=== PATIENT | female | born 1965 | race Caucasian/White ===

== ENCOUNTER 2020-03-15 11:29 | Outpatient (CLI) | payer OTHER, SELFPAY ==
--- NOTE | 2020-03-15 11:50 | XRR_ITS ---
PROCEDURE INFORMATION: Exam: XR Lumbosacral Spine, 2 or 3 Views Exam date and time: 03/15/2020 12:03 PM Age: 54 years old Clinical indication: Low back pain; Additional info: Back pain several years TECHNIQUE: Imaging protocol: XR of the lumbosacral spine, 2 or 3 views. Other technique: AP, lateral and spot lateral views of the lumbar spine are submitted. COMPARISON: MRI Lumbar Spine w/o [id number] 02/02/2015 11:13 AM FINDINGS: Vertebrae: Moderate degenerative L5-S1 disc narrowing with mild spondylosis. Soft tissues: Unremarkable. Organs: Probable gallstones right upper quadrant. XR/XR lumbar spine 2-3V* [id number] IMPRESSION: 1. Degenerative changes as above. 2. No acute lumbar spinal bony abnormality identified. 3. Probable gallstones right upper quadrant.
== END 2020-03-15 11:30 | disposition home or self-care (01) ==
PROVIDERS: Family Provider Internal Medicine; PCP Internal Medicine; Visit Provider Internal Medicine
DX: M54.5 Low back pain (principal); M47.816 Spondylosis without myelopathy or radiculopathy, lumbar region
CPT/HCPCS: 72100

== ENCOUNTER → 2021-02-17 15:29 | Outpatient (BNVA) | payer SELFPAY | PROVIDERS: PCP Internal Medicine; Visit Provider Nurse Practitioner | DX: R39.9 Unspecified symptoms and signs involving the genitourinary system (principal); R39.15 Urgency of urination | CPT/HCPCS: 81000 ==

== ENCOUNTER 2021-02-21 22:40 | Emergency (ER) | payer SELFPAY ==
[2021-02-21 22:49] VITALS: PULSE 64; RESP 15; TEMP 36.9; O2SAT 97
--- NOTE | 2021-02-21 22:56 | ED_ITS ---
HPI - Female Genitourinary General: Chief complaint: Urogenital-Female Stated complaint: poss uti Time Seen by Provider: 02/21/21 22:53 History of Present Illness: HPI Narrative: 55-year-old female comes in [facility] for complaints of generalized malaise. Patient reports that 2 weeks ago she was diagnosed with urinary tract infection and has been taking antibiotics although she might of missed a dose here and there but completed the dosing but continues to feel poorly. Patient is alert oriented. Patient also mentions that she for the last month has been helping her son who is diagnosed with cancer. Review of Systems General: Reports: 10 or more systems reviewed and unremarkable except in HPI and below Const: Reports: malaise : Reports: urinary frequency PFSH ED PFSH: Social History Smoking and tobacco status: never smoked Physical Exam Const: COMMON NORMALS: no acute distress and patient oriented x3 GENERAL APPEARANCE: cooperative HENMT: COMMON NORMALS: normocephalic, TM's normal bilaterally and Normal external nose present HEAD & SCALP: normal to inspection and normocephalic NOSE: Normal external nose present TYMPANIC MEMBRANE: TM's normal bilaterally MOUTH: Normal oral and palatal mucosa present THROAT: posterior oropharynx normal Eye: GENERAL EYE: appearance normal, both eyes and all related structures Neck/C-Spine: COMMON NORMALS: full ROM Lymph: LYMPHATIC: no lymphadenopathy noted Chest: COMMONS NORMALS: normal inspection of the chest Resp: COMMON NORMALS: normal respiratory effort EFFORT & INSPECTION: Yes able to speak in complete sentences Cardio: COMMON NORMALS: regular rate and regular rhythm RATE: regular rate RHYTHM: regular rhythm GI: COMMON NORMALS: non-tender : COMMON NORMALS: Yes no CVA tenderness BLADDER/KIDNEY EXAM: Yes no CVA tenderness Back/Pelvis: COMMON NORMALS: no CVA tenderness and thoracic and lumbar spine normal to inspection Extremity: COMMON NORMALS: normal to inspection Neuro: COMMON NORMALS: patient oriented x3 and moves all extremities Psych: COMMON NORMALS: mental status grossly normal and cooperative Skin: COMMON NORMALS: no rashes or lesions noted GENERAL SKIN EXAM: no rashes or lesions noted Course Vital Signs: Vital signs: Vital Signs Temperature 98.5 F 02/21/21 22:49 Pulse Rate 82 02/21/21 23:56 Respiratory Rate 18 02/21/21 23:56 Blood Pressure 160/93 02/21/21 23:56 Pulse Oximetry 98 02/21/21 23:56 MDM - Female MDM Narrative: Medical decision making narrative: 55-year-old female comes in today for complaints of fatigue and some urinary frequency. Patient appears mildly unwell but not toxic. Vital signs are normal except for some mild elevation in blood pressure. Abdomen soft nontender. No CVA tenderness is noted. Patient reported that 2 weeks ago she had a urinary tract infection was treated but continues to have similar symptoms. Patient at first thought she may have a recurrent urinary tract infection. Differential diagnosis includes UTI, malingering, depression, hypertension. Urinalysis showed a very low specific gravity. I was concerned for some overhydration on patient's part may be due to her urinary tract infection and trying to clear her urine out. Her sodium was a little bit low at 134 so this may be suggesting that she is drinking more than she needs to may be causing her urinary frequency. I discussed with patient that she probably needs to restrict fluid intake to about 2 L a day. I restarted patient's lisinopril hydrochlorthiazide but she had ran out of. I recommended that patient follow-up with her primary care for further evaluation and consideration of other treatment options. Patient also reported that she been using some kratom and wanted to know if there is some medical assistance to get her off that supplement. I reassured her that I think she could probably just taper herself off the substance and would be okay. But if she would like medical assistance she needed to talk to her primary care for further information regarding that and a referral to such a program. Lab Data: Labs: Lab Results 02/21/21 02/22/21 02/22/21 Range/Units 23:15 00:15 00:15 WBC 7.3 (4.0-10.0) 10^3/ uL RBC 4.79 (4.1-5.3) 10^6/u L Hgb 14.0 (11.5-15.3) g/dL Hct 43.1 (37.0-47.0) % MCV 90.0 (81-99) fL MCH 29.2 (28.0-34.0) pg MCHC 32.5 (30.0-36.0) g/dL RDW 12.5 (12.1-15.1) % Plt Count 276 (130-400) 10^3/c mm MPV 10.3 (7.4-10.4) fL Neut % (Auto) 63.6 % Lymph % (Auto) 27.8 % [place] % (Auto) 7.3 % Eos % (Auto) 0.8 % Baso % (Auto) 0.4 % Neut # (Auto) 4.65 (1.8-7.7) 10^3/u L Lymph # (Auto) 2.0 (0.8-4.8) 10^3/u L [place] # (Auto) 0.5 (0.2-0.9) 10^3/u L Eos # (Auto) 0.1 (0.0-0.8) 10^3/u L Baso # (Auto) 0.0 (0.0-0.1) 10^3/u L Nucleated RBC % (a uto) 0 % Nucleated RBCs # 0.0 /100WBC Sodium 134 L (136-145) mmol/L Potassium 4.1 (3.5-5.1) mmol/L Chloride 97 L (98-107) mmol/L Carbon Dioxide 28 (22-29) mmol/L Anion Gap 13.1 (5-19) BUN 7 (6-20) mg/dL Creatinine 0.6 (0.5-0.9) mg/dL GFR Calculation 104.2 (90-130) mL/min Glucose 103 (65-115) mg/dL Calculated Osmolal ity 276 L (285-295) mOsm/k g Calcium 9.1 (8.5-10.5) mg/dL Total Bilirubin 0.2 (0.15-1.2) mg/dL AST 15 (0-32) U/L ALT 8 (0-33) U/L Alkaline Phosphata se 78 (35-105) IU/L Total Protein 7.9 (6.6-8.7) g/dL Albumin 4.6 (3.5-5.2) g/dL Globulin 3.3 (1.3-4.6) g/dL Urine Color Yellow (Yellow) Urine Appearance Clear (CLEAR) Urine pH 7 (5-7) Ur Specific Gravit y 1.000 L (1.005-1.030) Urine Protein Neg (Negative) Urine Glucose (UA) Norm (Normal) Urine Ketones Negative (Negative) Urine Blood Neg (Negative) Urine Nitrate Negative (Negative) Urine Bilirubin Neg (Negative) Urine Urobilinogen Norm (Negative) mg/dL Ur Leukocyte Anahi ase Negative (Negative) Discharge Plan Discharge Patient Disposition: Home Clinical Impression: Malaise and fatigue, History of UTI Hypertension Qualifiers: Hypertension type: unspecified Qualified Code(s): I10 - Essential (primary) hypertension Condition: Stable Prescriptions: New lisinopril-hydrochlorothiazide 10-12.5 mg tablet 1 tab PO DAILY Qty: 30 RF: 0 No Action gabapentin 800 mg tablet 800 mg PO QID RF: 0 levothyroxine 75 mcg capsule 75 mcg PO DAILY RF: 0 Discharge Orders: Discharge ED (Routine); Ordered 02/22/21 Ordered By: Ian Arrington Discharge Diet: Usual diet Discharge Activity: Increase activity as tolerated Patient Instructions: Fatigue (ED), Opioid Safety Activity Restrictions/Additional Instructions: Continue with routine care. Follow-up with primary care for further refills on your antihypertensive. Discussed with your primary care your symptoms and other concerns for further suggestions. Return to the emergency department for new concerns. Coding Level of Care Code ED Real Estate Sales Agent for Madelin Fwd Exam Comprehensive
[2021-02-21 23:45] LABS: Add Urine Microscopic? NO; Charge for UA Resulting for Rev
[2021-02-21 23:50] LABS: Bilirubin Urine Neg (Negative); Blood Urine Neg (Negative); Glucose Urine UA Norm (Normal); Ketones Urine Negative (Negative); Leukocyte Esterase Urine Negative (Negative); Nitrate Urine Negative (Negative); Protein Urine Neg (Negative); Urine Appearance Clear (CLEAR); Urine Color Yellow (Yellow); Urobilinogen Urine Norm (Negative); pH Urine 7 (5-7)
[2021-02-21 23:56] VITALS: BP 160/93; PULSE 82; RESP 18; O2SAT 98
[2021-02-22 00:21] LABS: Basophils % 0.4 %; Eosinophils # 0.1 10^3/uL (0.0-0.8); Eosinophils % 0.8 %; Hematocrit 43.1 % (37.0-47.0); Lymphocytes % 27.8 %; Mean Corpuscular HGB Conc 32.5 g/dL (30.0-36.0); Mean Corpuscular Hemoglobin 29.2 pg (28.0-34.0); Mean Platelet Volume 10.3 fL (7.4-10.4); Monocytes # 0.5 10^3/uL (0.2-0.9); Monocytes % 7.3 %; Neutrophils # 4.65 10^3/uL (1.8-7.7); Neutrophils % 63.6 %; Nucleated Red Blood Cells % 0 %; Platelet Count 276 10^3/cmm (130-400); Red Blood Count 4.79 10^6/uL (4.1-5.3); Red Cell Distribution Width 12.5 % (12.1-15.1); White Blood Count 7.3 10^3/uL (4.0-10.0)
[2021-02-22 00:41] LABS: Alanine Aminotransferase 8 U/L (0-33); Albumin Level 4.6 g/dL (3.5-5.2); Alkaline Phosphatase 78 IU/L (35-105); Anion Gap 13.1 (5-19); Aspartate Amino Transferase 15 U/L (0-32); Blood Urea Nitrogen 7 mg/dL (6-20); Calcium 9.1 mg/dL (8.5-10.5); Carbon Dioxide 28 mmol/L (22-29); Chloride 97 mmol/L (98-107); Globulin 3.3 g/dL (1.3-4.6); Glomerular Filtration Rate 104.2 mL/min (90-130); Glucose 103 mg/dL (65-115); Osmolality Calculated 276 mOsm/kg (285-295); Potassium 4.1 mmol/L (3.5-5.1); Sodium 134 mmol/L (136-145); Total Bilirubin 0.2 mg/dL (0.15-1.2); Total Protein 7.9 g/dL (6.6-8.7)
== END 2021-02-22 00:59 | disposition home or self-care (01) ==
PROVIDERS: Emergency Provider Nurse Practitioner Family
DX: R53.83 Other fatigue (principal); R53.81 Other malaise; I10 Essential (primary) hypertension; Z87.440 Personal history of urinary (tract) infections
CPT/HCPCS: 80053; 81003; 85025; 87077; 87086; 87186; 99282

== ENCOUNTER 2021-10-02 14:07 | Emergency (ER) | payer MEDICAID, SELFPAY ==
[2021-10-02 14:24] VITALS: BP 156/86; PULSE 74; RESP 16; TEMP 36.8; O2SAT 98; BMI 21.2
--- NOTE | 2021-10-02 15:52 | W.ED.DIZZY ---
HPI - Dizziness General: Chief Complaint: Dizziness Stated Complaint: dizzy Time Seen by Provider: 10/02/21 15:51 History of Present Illness: HPI Narrative: 55-year-old female presents due to lightheadedness. States that she feels foggy. Denies any falls. Denies any discoordination or vertigo. Denies any focal weakness numbness or tingling. Does admit to using a homeopathic substance from the vape shop but is not sure exactly what it is. Denies any other illicit substance use. Denies any chest pain or shortness of breath. Review of Systems Narrative: - CONSTITUTIONAL: Denies weight loss, fever and chills. - HEENT: Denies changes in vision and hearing. - RESPIRATORY: Denies SOB and cough. - CV: Denies palpitations and CP. - GI: Denies abdominal pain, nausea, vomiting and diarrhea. - : Denies dysuria and urinary frequency. - MSK: Denies myalgia and joint pain. - SKIN: Denies rash and pruritus. - NEUROLOGICAL: Denies headache, weakness, numbness and syncope. - PSYCHIATRIC: Denies suicidal ideation [facility] [place] ED PFSH: Social History Smoking and tobacco status: never smoked Physical Exam Narrative: EXAM NARRATIVE: - GENERAL: Alert and oriented x 3. No acute distress. Well-nourished. - EYES: EOMI. Anicteric. - HENT: Atraumatic, no C-spine tenderness. Moist mucous membranes. No scleral icterus. No cervical lymphadenopathy. - LUNGS: Clear to auscultation bilaterally. No accessory muscle use. Equal lung sounds bilaterally. No respiratory distress. - CARDIOVASCULAR: Regular rate and rhythm. No murmur. No JVD. - ABDOMEN: Soft, non-tender and non-distended. Negative CVA tenderness bilaterally, no rebound or guarding, negative Lopez sign. No palpable masses. - EXTREMITIES: No edema. Non-tender. - SKIN: No rashes or lesions. Warm. - NEUROLOGIC: No nystagmus. No meningismus or focal neurological deficits. CN II-XII grossly intact. - PSYCHIATRIC: Cooperative. Appropriate mood and affect. Course Vital Signs: Vital signs: Vital Signs Temperature 98.2 F 10/02/21 14:24 Pulse Rate 66 10/02/21 16:30 Respiratory Rate 18 10/02/21 16:30 Blood Pressure 152/88 10/02/21 16:30 Pulse Oximetry 96 10/02/21 16:30 MDM - Dizziness Medical Decision Making 55-year-old presents due to lightheadedness. Nonfocal neurologic exam. CT scan of the head does not reveal intracranial hemorrhage or other acute abnormality. Lab work does reveal hyponatremia to 128. Previously recorded sodium level is 134 and she does not have any focal neurologic deficits or seizures. Notably hypertonic saline is required at this time. Remainder of lab work unremarkable. Referral to primary care provided. Strict fluid restriction at home. At this time I believe patient would be safe for discharge and outpatient follow-up. Return precautions provided. Plan was reviewed with the patient who expressed understanding. Questions answered. Patient will follow up with PCP. Patient discharged in stable condition. Lab Data : 10/02/21 15:52 10/02/21 15:[address] 10/02/21 16:05 IMPRESSION: No acute intracranial abnormality. Laboratory Results WBC 5.5 10^3/uL (4.0-10.0) 10/02/21 15:52 RBC 5.51 10^6/uL (4.1-5.3) H 10/02/21 15:52 Hgb 16.1 g/dL (11.5-15.3) H 10/02/21 15:52 Hct 48.7 % (37.0-47.0) H 10/02/21 15:52 MCV 88.4 fl (81-99) 10/02/21 15:52 MCH 29.2 pg (28.0-34.0) 10/02/21 15:52 MCHC 33.1 g/dL (30.0-36.0) 10/02/21 15:52 RDW 12.8 % (12.1-15.1) 10/02/21 15:52 Plt Count 309 10^3/cmm (130-400) 10/02/21 15:52 MPV 10.3 fL (7.4-10.4) 10/02/21 15:52 Neut % (Auto) 63.7 % 10/02/21 15:52 Lymph % (Auto) 28.8 % 10/02/21 15:52 [place] % (Auto) 6.2 % 10/02/21 15:52 Eos % (Auto) 0.4 % 10/02/21 15:52 Baso % (Auto) 0.7 % 10/02/21 15:52 Neut # (Auto) 3.50 10^3/uL (1.8-7.7) 10/02/21 15:52 Lymph # (Auto) 1.6 10^3/uL (0.8-4.8) 10/02/21 15:52 [place] # (Auto) 0.3 10^3/uL (0.2-0.9) 10/02/21 15:52 Eos # (Auto) 0.0 10^3/uL (0.0-0.8) 10/02/21 15:52 Baso # (Auto) 0.0 10^3/uL (0.0-0.1) 10/02/21 15:52 Nucleated RBC % (auto) 0 % 10/02/21 15:52 Nucleated RBCs # 0.0 /100WBC 10/02/21 15:52 Sodium 128 mmol/L (136-145) L 10/02/21 15:52 Potassium 4.4 mmol/L (3.5-5.1) 10/02/21 15:52 Chloride 87 mmol/L (98-107) L 10/02/21 15:52 Carbon Dioxide 26 mmol/L (22-29) 10/02/21 15:52 Anion Gap 19.4 (5-19) H 10/02/21 15:52 BUN 4 mg/dL (6-20) L 10/02/21 15:52 Creatinine 0.7 mg/dL (0.5-0.9) 10/02/21 15:52 GFR Calculation 87.2 mL/min (90-130) L 10/02/21 15:52 Glucose 110 mg/dL (65-115) 10/02/21 15:52 Calculated Osmolality 264 mOsm/kg (285-295) L 10/02/21 15:52 Calcium 9.2 mg/dL (8.5-10.5) 10/02/21 15:52 Total Bilirubin 0.3 mg/dL (0.15-1.2) 10/02/21 15:52 AST 21 U/L (0-32) 10/02/21 15:52 ALT 13 U/L (0-33) 10/02/21 15:52 Alkaline Phosphatase 86 IU/L (35-105) 10/02/21 15:52 Troponin T Baseline 6 ng/L (0-10) 10/02/21 15:52 Total Protein 9.4 g/dL (6.6-8.7) H 10/02/21 15:52 Albumin 5.8 g/dL (3.5-5.2) H 10/02/21 15:52 Globulin 3.6 g/dL (1.3-4.6) 10/02/21 15:52 TSH 3.00 uIU/mL (0.27-4.20) 10/02/21 15:52 Free T4 1.54 ng/dL (0.82-1.77) 10/02/21 15:52 Urine Color Yellow (Yellow) 10/02/21 15:55 Urine Appearance Clear (CLEAR) 10/02/21 15:55 Urine pH 6 (5-7) 10/02/21 15:55 Ur Specific [place] 1.005 (1.005-1.030) 10/02/21 15:55 Urine Protein Neg (Negative) 10/02/21 15:55 Urine Glucose (UA) Norm (Normal) 10/02/21 15:55 Urine Ketones Negative (Negative) 10/02/21 15:55 Urine Blood Neg (Negative) 10/02/21 15:55 Urine Nitrate Negative (Negative) 10/02/21 15:55 Urine Bilirubin Neg (Negative) 10/02/21 15:55 Urine Urobilinogen Neg mg/dL (Negative) 10/02/21 15:55 Ur Leukocyte Esterase Negative (Negative) 10/02/21 15:55 Urine RBC None /hpf (0-2) 10/02/21 15:55 Urine WBC None /hpf (0-5) 10/02/21 15:55 Ur Squamous Epith Cells None /hpf (0-5) 10/02/21 15:55 Amorphous Sediment Not Reportable 10/02/21 15:55 Urine Bacteria None /hpf (NONE) 10/02/21 15:55 Urine Opiates Screen Negative ng/mL (Negative) 10/02/21 15:55 Ur Barbiturates Screen Negative ng/mL (Negative) 10/02/21 15:55 Ur Phencyclidine Scrn Negative ng/mL (Negative) 10/02/21 15:55 Ur Amphetamines Screen Negative ng/mL (Negative) 10/02/21 15:55 U Benzodiazepines Scrn Negative ng/mL (Negative) 10/02/21 15:55 Urine Cocaine Screen Negative ng/mL (Negative) 10/02/21 15:55 U Marijuana (THC) Screen Negative ng/mL (Negative) 10/02/21 15:55 EKG Data EKG 1: Other EKG comments: Sinus rhythm, rate of 73, no sign of acute ischemia or other acute abnormality. Discharge Plan Discharge Patient Disposition: Home Condition: Stable Prescriptions: No Action gabapentin 800 mg tablet 800 mg PO QID 0RF levothyroxine 75 mcg capsule 75 mcg PO DAILY 0RF lisinopril-hydrochlorothiazide 10-12.5 mg tablet 1 tab PO DAILY Qty: 30 0RF Discharge Orders: Discharge ED (Routine); Ordered 10/02/21 Ordered By: Emmanuel Priest Referrals: Your, PCP [Other] - 1-3 days Patient Instructions: Hyponatremia (ED), Lightheadedness (ED), Opioid Safety Coding Level of Care Code ED Transportation Project Manager for Chg Jeremy
[2021-10-02 16:03] VITALS: O2SAT 98
--- NOTE | 2021-10-02 16:05 | CTR_ITS ---
PROCEDURE INFORMATION: Exam: CT Head Without Contrast Exam date and time: 10/02/2021 4:05 PM Age: 55 years old Clinical indication: Altered mental status/memory loss; Patient HX: AMS with tremors x 1 day TECHNIQUE: Imaging protocol: Computed tomography of the head without contrast. Radiation optimization: All CT scans at this facility use at least one of these dose optimization techniques: automated exposure control; mA and/or kV adjustment per patient size (includes targeted exams where dose is matched to clinical indication); or iterative reconstruction. COMPARISON: MRI Head w/wo* [id number] 09/04/2016 10:07 AM RADIATION DOSE METRICS: Total DLP (mGy-cm): 802.66 FINDINGS: Brain: Normal. No hemorrhage. Unremarkable white matter. No mass effect. Cerebral ventricles: No ventriculomegaly. Paranasal sinuses: Visualized sinuses are unremarkable. No fluid levels. Mastoid air cells: Visualized mastoid air cells are well aerated. Bones/joints: Unremarkable. No acute fracture. Soft tissues: Unremarkable. CT/CT head wo con* [id number] IMPRESSION: No acute intracranial abnormality.
[2021-10-02 16:14] LABS: Basophils % 0.7 %; Eosinophils % 0.4 %; Hematocrit 48.7 % (37.0-47.0); Hemoglobin 16.1 g/dL (11.5-15.3); Lymphocytes # 1.6 10^3/uL (0.8-4.8); Lymphocytes % 28.8 %; Mean Corpuscular HGB Conc 33.1 g/dL (30.0-36.0); Mean Corpuscular Hemoglobin 29.2 pg (28.0-34.0); Mean Corpuscular Volume 88.4 fl (81-99); Mean Platelet Volume 10.3 fL (7.4-10.4); Monocytes # 0.3 10^3/uL (0.2-0.9); Monocytes % 6.2 %; Neutrophils % 63.7 %; Nucleated Red Blood Cells % 0 %; Platelet Count 309 10^3/cmm (130-400); Red Blood Count 5.51 10^6/uL (4.1-5.3); Red Cell Distribution Width 12.8 % (12.1-15.1); White Blood Count 5.5 10^3/uL (4.0-10.0)
[2021-10-02 16:29] LABS: Troponin(5th) Baseline 6 ng/L (0-10)
[2021-10-02 16:30] VITALS: BP 152/88; PULSE 66; RESP 18; O2SAT 96
[2021-10-02 16:37] LABS: Alanine Aminotransferase 13 U/L (0-33); Albumin Level 5.8 g/dL (3.5-5.2); Alkaline Phosphatase 86 IU/L (35-105); Anion Gap 19.4 (5-19); Aspartate Amino Transferase 21 U/L (0-32); Blood Urea Nitrogen 4 mg/dL (6-20); Calcium 9.2 mg/dL (8.5-10.5); Carbon Dioxide 26 mmol/L (22-29); Chloride 87 mmol/L (98-107); Free T4 Free Thyroxine 1.54 ng/dL (0.82-1.77); Globulin 3.6 g/dL (1.3-4.6); Glomerular Filtration Rate 87.2 mL/min (90-130); Glucose 110 mg/dL (65-115); Osmolality Calculated 264 mOsm/kg (285-295); Potassium 4.4 mmol/L (3.5-5.1); Sodium 128 mmol/L (136-145); Total Bilirubin 0.3 mg/dL (0.15-1.2); Total Protein 9.4 g/dL (6.6-8.7)
[2021-10-02] MEDS: sodium chloride 0.9% 1,000 ML 999 ML IV (16:55)
[2021-10-02 17:33] LABS: Bilirubin Urine Neg (Negative); Blood Urine Neg (Negative); Glucose Urine UA Norm (Normal); Ketones Urine Negative (Negative); Leukocyte Esterase Urine Negative (Negative); Nitrate Urine Negative (Negative); Protein Urine Neg (Negative); Specific Gravity, Urine 1.005 (1.005-1.030); Urine Appearance Clear (CLEAR); Urine Color Yellow (Yellow); Urobilinogen Urine Neg (Negative); pH Urine 6 (5-7)
[2021-10-02 17:36] LABS: Add Urine Culture? No
[2021-10-02 17:42] LABS: Amphetamines Screen Urine Negative (Negative); Barbiturates Screen Urine Negative (Negative); Benzodiazepines Screen Urine Negative (Negative); Cocaine Screen Urine Negative (Negative); Opiate Screen Urine Negative (Negative); PCP Screen Urine Negative (Negative); THC Screen Urine Negative (Negative)
--- NOTE | 2021-10-02 18:06 | ECG_ITS ---
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 Measurements Intervals [place] Rate: 73 P: 81 DC: 192 QRS: 84 QRSD: 133 T: 80 QT: 423 QTc: 468 Interpretive Statements SINUS RHYTHM INDETERMINATE AXIS INTRAVENTRICULAR CONDUCTION DELAY [130+ ms QRS DURATION] Compared to ECG 08/27/2015 14:19:34 Intraventricular conduction delay now present Sinus tachycardia no longer present Short DC interval no longer present Electronically Signed On 10-03-2021 5:48:40 TERRITORY SALES MANAGER by Renetta Jackson M.D. [id number]
[2021-10-02 18:46] LABS: Troponin 5 2HR Delta 0 ABS# (0-10)
--- NOTE | 2021-10-03 10:06 | DCPLANNER ---
content manager had message to speak with patient about getting established with a primary care physician. content manager called phone number [phone], unable to speak with patient and unable to leave a voicemail. No voicemail set up at this time.
== END 2021-10-02 18:36 | disposition home or self-care (01) ==
PROVIDERS: Emergency Provider Emergency Medicine
DX: R42 Dizziness and giddiness (principal)
CPT/HCPCS: 70450; 80053; 80306; 81001; 84439; 84443; 84484; 85025; 93005; 96365; 99284; J7030

== ENCOUNTER → 2021-10-25 14:47 | Outpatient (BNVA) | payer MEDICAID, SELFPAY | PROVIDERS: Visit Provider Physician Assistant | DX: M54.9 Dorsalgia, unspecified (principal) | CPT/HCPCS: 72050; 72072 ==

== ENCOUNTER 2021-12-04 14:18 | Outpatient (CLI) | payer MEDICAID, SELFPAY ==
--- NOTE | 2021-12-04 14:30 | MR_ITS ---
WS: [id number] MRI CERVICAL SPINE NONCONTRAST HISTORY: M54.2 - Cervicalgia COMPARISON: 04/25/2016 Technique: Multiplanar, multisequence noncontrast imaging of the cervical spine. Very minimal straightening of the normal cervical lordosis. No marrow edema or fracture. Mild disc sp avani narrowing and desiccation. Similar to the prior examination. Signal within the cord is normal. No inferior displacement of cerebellar tonsils. There is mild atrop hy of the cerebellum. Increased CSF surrounds the cerebellum and the brainstem. No mass or infarct id entified. Craniocervical junction, C1 and C2 relationship, odontoid process and soft tissues are normal. C2-C3: Normal. C3-C4: Small osteophytes and a very tiny central disc protrusion. No stenosis. C4-C5: Normal. C5-C6: Mild annular disc bulge with a central disc protrusion and annular fissure. Mild encroachment upon the thecal sac but there is still CSF surrounding the cord. No high-grade stenosis. C6-C7: Very shallow LEFT foraminal disc protrusion with no stenosis. C7-T1: Normal. Paraspinal soft tissue are normal. MR/MR cervical spin wo con* [id number] IMPRESSION: 1. No high-grade central or foraminal stenosis or disc protrusions. 2. Small central disc protrusion with osteophyte at C5-6 similar to the prior study. No high-grade stenosis. 3. Very small LEFT foraminal disc protrusion at C6-7.
--- NOTE | 2021-12-04 15:15 | MR_ITS ---
WS: [id number] MRI THORACIC SPINE noncontrast. HISTORY: M54.9 - Dorsalgia, unspecified COMPARISON: 03/22/2016 TECHNIQUE: Multiplanar sequences are performed in sagittal and axial planes. Normal posterior thoracic alignment. No fracture or marrow edema. Disc spaces are well preserved. Nor mal signal in the thoracic cord. No syrinx. No cord enlargement or tethering. T1-2: Normal. T2-3: Normal. T3-4: Normal. T4-5: Normal. T5-6: Normal. T6-7: Normal. T7-8: Normal. T8-9: Normal. T9-10: Normal. T10-11: Normal. T11-12: Normal. No paravertebral soft tissue mass. MR/MR thoracic spin wo con* [id number] IMPRESSION: Unremarkable MRI of thoracic spine. No significant stenosis or disc protrusions .
== END 2021-12-04 14:19 | disposition home or self-care (01) ==
PROVIDERS: Visit Provider Physician Assistant
DX: M54.9 Dorsalgia, unspecified (principal); M54.2 Cervicalgia
CPT/HCPCS: 72141; 72146

== ENCOUNTER → 2022-02-05 15:49 | Outpatient (BNVA) | payer MEDICAID, SELFPAY | PROVIDERS: Visit Provider Physician Assistant | DX: M54.6 Pain in thoracic spine (principal); M47.812 Spondylosis without myelopathy or radiculopathy, cervical region | CPT/HCPCS: 99213 ==

== ENCOUNTER → 2022-02-15 08:07 | Outpatient (BNVA) | payer MEDICAID, SELFPAY | PROVIDERS: Visit Provider Internal Medicine | DX: E03.9 Hypothyroidism, unspecified (principal); R00.2 Palpitations | CPT/HCPCS: 84439; 84443; 86376; 86800; 99204 ==

== ENCOUNTER → 2022-03-06 09:54 | Outpatient (BNVA) | payer MEDICAID, SELFPAY | PROVIDERS: Visit Provider Otolaryngology | DX: H61.23 Impacted cerumen, bilateral (principal) | CPT/HCPCS: 69210; 99203 ==

== ENCOUNTER 2022-07-25 12:31 | Outpatient (CLI) | payer MEDICAID, SELFPAY ==
--- NOTE | 2022-07-25 12:35 | MM_ITS ---
WS: [id number] BILATERAL 3D TOMOSYNTHESIS DIGITAL DIAGNOSTIC MAMMOGRAPHY WITH CAD CLINICAL INFORMATION: LT BREAST LUMP COMPARISON: September 04, 2016 TECHNIQUE: Bilateral CC, MLO, and ML views. FINDINGS: The breasts are composed of heterogeneous fibroglandular density, which can limit the detection of sm all underlying mass lesions. Palpable marker upper outer LEFT breast. Due to the palpable marker is a small ovoid nodule likely ly mph node measuring 5.5 mm. This is unchanged since 2017 mammogram. This is also stable compared to 23 06 and 2006. Ultrasound described below. No other suspicious findings. RIGHT breast is unremarkable. ULTRASOUND BREAST LEFT TECHNIQUE: Ultrasound left breast focused area of concern. CLINICAL INFORMATION: LT BREAST LUMP FINDINGS: Ultrasound LEFT breast 1:00 position 4 cm from the nipple. The area of concern is a 5.3 x 2.1 x 5.7 m m ovoid nodule with fatty hilum compatible with a small lymph node. This is not pathologically enlarg ed. Additionally, this is stable since the mammogram 2006. Recommend return to annual screening mammo graphy. MM/[place] [id number] IMPRESSION: BI-RADS 2 BENIGN FOLLOW UP: Recommend return to annual screening mammography.
--- NOTE | 2022-07-25 12:48 | US_ITS ---
WS: [id number] BILATERAL 3D TOMOSYNTHESIS DIGITAL DIAGNOSTIC MAMMOGRAPHY WITH CAD CLINICAL INFORMATION: LT BREAST LUMP COMPARISON: September 04, 2016 TECHNIQUE: Bilateral CC, MLO, and ML views. FINDINGS: The breasts are composed of heterogeneous fibroglandular density, which can limit the detection of sm all underlying mass lesions. Palpable marker upper outer LEFT breast. Due to the palpable marker is a small ovoid nodule likely ly mph node measuring 5.5 mm. This is unchanged since 2017 mammogram. This is also stable compared to 23 06 and 2006. Ultrasound described below. No other suspicious findings. RIGHT breast is unremarkable. ULTRASOUND BREAST LEFT TECHNIQUE: Ultrasound left breast focused area of concern. CLINICAL INFORMATION: LT BREAST LUMP FINDINGS: Ultrasound LEFT breast 1:00 position 4 cm from the nipple. The area of concern is a 5.3 x 2.1 x 5.7 m m ovoid nodule with fatty hilum compatible with a small lymph node. This is not pathologically enlarg ed. Additionally, this is stable since the mammogram 2006. Recommend return to annual screening mammo graphy. US/US breast LT limited* [id number] IMPRESSION: BI-RADS 2 BENIGN FOLLOW UP: Recommend return to annual screening mammography.
== END 2022-07-25 12:32 | disposition home or self-care (01) ==
LOC: RAD 12:32
PROVIDERS: Visit Provider Internal Medicine
DX: N63.21 Unspecified lump in the left breast, upper outer quadrant (principal)
CPT/HCPCS: 76642; 77062; G0279

== ENCOUNTER 2023-01-01 14:30 | Outpatient (CLI) | payer MEDICAID, SELFPAY ==
[2023-01-01 16:12] LABS: Thyroid Stimulating Hormone 1.33 uIU/mL (0.27-4.20)
== END 2023-01-01 14:31 | disposition home or self-care (01) ==
PROVIDERS: PCP Internal Medicine; Visit Provider Internal Medicine
DX: E03.9 Hypothyroidism, unspecified (principal)
CPT/HCPCS: 36415; 84439; 84443

== ENCOUNTER 2023-02-24 12:59 | Outpatient (CLI) | payer MEDICAID, SELFPAY ==
--- NOTE | 2023-02-24 13:13 | MM_ITS ---
WS: [id number] LEFT 3D TOMOSYNTHESIS DIGITAL MAMMOGRAPHY WITH CAD CLINICAL INFORMATION: LT BREAST LUMP HISTORY: Palpable lump LEFT breast COMPARISON: July 25, 2022 TECHNIQUE: 3 views of the left breast were obtained. FINDINGS: The left breast is composed of heterogeneous fibroglandular density tissue, which can limit the detec tion of small underlying mass lesions. Palpable marker upper outer LEFT breast. Adjacent to the palpa ble marker is a small ovoid nodule measuring 5 mm similar in appearance to July 25, 2022. Ultraso und of this area is described below ULTRASOUND BREAST LEFT TECHNIQUE: Ultrasound left breast focused area of concern. CLINICAL INFORMATION: LT BREAST LUMP COMPARISON: July 25, 2022 FINDINGS: Ultrasound LEFT breast in the area of palpable concern at the 1:00 position 5 cm from the nipple. Hyp oechoic subcutaneous lesion with a fatty hilum compatible with a small lymph node. This measures appr oximately 5.1 x 2.5 x 4.5 mm. This is similar in appearance compared to the prior examination [facility] 2021 No other suspicious lesions in this area. Recommend return to annual screening mammography. MM/[place] [id number] IMPRESSION: BI-RADS: 2-Benign FOLLOW UP: 1 Year Follow-up Recommend return to annual screening mammography.
== END 2023-02-24 13:00 | disposition home or self-care (01) ==
PROVIDERS: PCP Internal Medicine; Visit Provider Internal Medicine
DX: N63.21 Unspecified lump in the left breast, upper outer quadrant (principal)
CPT/HCPCS: 76642; 77061; G0279

== ENCOUNTER → 2023-03-24 15:20 | Outpatient (BNVA) | payer MEDICAID, SELFPAY | PROVIDERS: PCP Internal Medicine; Visit Provider Internal Medicine | DX: E03.9 Hypothyroidism, unspecified (principal); R00.2 Palpitations; L65.9 Nonscarring hair loss, unspecified | CPT/HCPCS: 84439; 84443 ==

== ENCOUNTER 2023-05-06 10:28 | Outpatient (CLI) | payer MEDICAID, SELFPAY ==
[2023-05-06 11:32] LABS: Free T4 Free Thyroxine 1.41 ng/dL (0.82-1.77); Thyroid Stimulating Hormone 3.52 uIU/mL (0.27-4.20)
== END 2023-05-06 10:29 | disposition home or self-care (01) ==
PROVIDERS: PCP Internal Medicine; Visit Provider Internal Medicine
DX: E03.9 Hypothyroidism, unspecified (principal); R00.2 Palpitations; L65.9 Nonscarring hair loss, unspecified
CPT/HCPCS: 84439; 84443

== ENCOUNTER 2023-06-18 17:32 | Emergency (ER) | payer MEDICAID, SELFPAY ==
[2023-06-18 17:40] VITALS: BP 157/90; PULSE 69; RESP 15; TEMP 36.6; O2SAT 98; BMI 21.6
--- NOTE | 2023-06-18 18:09 | ED_ITS ---
HPI - General Adult General: Chief complaint: General Medical Stated complaint: weakness, foul smelling urine Time Seen by Provider: 06/18/23 18:09 History of Present Illness: 57-year-old female comes in today with complaints of concentrated foul-smelling urine, weakness, and tremors. Patient tested positive for COVID 2 days ago. Patient has been having intermittent fevers. Patient appears nontoxic. Patient appears in no pain. 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 Associated symptoms: Deny chest pain, dyspnea, nausea, rash or vomiting Review of Systems General: Reports: 10 or more systems reviewed and unremarkable except in HPI and below Const: Reports: chills; Denies: fever(s) Card: Denies: chest pain Resp: Denies: dyspnea GI: Denies: nausea, vomiting, diarrhea or constipation : Reports: other (Dark foul-smelling urine) Musc: Denies: neck pain or back pain Skin/Breast: Denies: rash Neuro: Reports: weakness in extremities PFSH ED PFSH: Medical History delivery delivered Heart palpitations Urinary urgency Surgical History H/O tubal ligation Family History Father No problems noted. Mother Family history of thyroid problem Social History Smoking and tobacco/nicotine status: never used tobacco/nicotine Quit status (tobacco/nicotine): has quit using Second hand smoke exposure: No Alcohol intake: former Substance/Drug Use: never Adopted: Yes Caregiver/support person: No Lives independently: Yes Household members: spouse Housing: House Marital status: Number of children: 2 Highest education level completed: 11th Grade service: No Current occupational status: unemployed Physical Exam Const: COMMON NORMALS: alert HENMT: COMMON NORMALS: normocephalic HEAD & SCALP: normocephalic Neck/C-Spine: GENERAL: Yes normal visual inspection and No Meningeal signs present Resp: COMMON NORMALS: normal respiratory effort and clear to auscultation bilaterally AUSCULTATION: clear to auscultation bilaterally Cardio: COMMON NORMALS: regular rate and regular rhythm RATE: regular rate RHYTHM: regular rhythm GI: COMMON NORMALS: Soft to palpation AUSCULTATION: Yes normoactive bowel sounds PALPATION: Yes Soft to palpation and No Tenderness to palpation present (GI) : COMMON NORMALS: Yes no CVA tenderness BLADDER/KIDNEY EXAM: Yes no CVA tenderness Back/Pelvis: COMMON NORMALS: no CVA tenderness Extremity: COMMON NORMALS: no pedal edema Neuro: SENSORIUM/ORIENTATION: Yes alert Skin: COMMON NORMALS: turgor normal GENERAL SKIN EXAM: turgor normal Course Vital Signs: Vital signs: Vital Signs Temperature 97.9 F 06/18/23 17:40 Pulse Rate 65 06/18/23 18:35 Respiratory Rate 16 06/18/23 18:35 Blood Pressure 155/90 06/18/23 18:35 Pulse Oximetry 98 06/18/23 18:43 Oxygen Delivery Me thod Room Air 06/18/23 18:43 [facility] - General Adult Medical Decision Making 57-year-old female comes in today with complaints of weakness, tremors, and foul-smelling urine. Patient appears nontoxic. Lungs are clear to auscultation. No edema is noted in the extremities. Abdomen soft nontender. Vital signs are normal except for some elevated blood pressure. Differential diagnosis includes but not limited to dehydration, electrolyte imbalance, urinary tract infection, post viral syndrome, malingering. CBC noted some leukopenia with a white blood cell count 2.35 and ANC of 0.95. CMP noted a sodium of 127 which is chronic for patient with her last sodium being 128. Urinalysis was unremarkable. Reviewed exam with Dr. Carpio discussing abnormality and white blood cell count believing it is probably secondary to the viral syndrome which patient tested positive for 2 days ago, COVID-19, he agreed. Reviewed with patient with recommendations for drinking plenty of fluids monitoring for worsening signs and symptoms and following up with primary care for recheck of white blood cell count in 1 week. Patient reported understanding of care plan and need for follow-up or return to the ER for worsen ing symptoms. Patient was stable and discharged home. Lab Data 06/18/23 18:25 06/18/23 18:25 Laboratory Results WBC 2.35 10^3/uL (3.29-11.43) L 06/18/23 18:25 RBC 5.03 10^6/uL (3.85-5.65) 06/18/23 18:25 Hgb 14.60 g/dL (11.27-16.99) 06/18/23 18:25 Hct 43.7 % (36-47) 06/18/23 18:25 MCV 86.9 fl (85-98) 06/18/23 18: MCH 29.0 pg (27-33) 06/18/23 18: MCHC 33.4 g/dL (30-55) 06/18/23 18:25 RDW 12.3 % (12.1-15.1) 06/18/23 18: Plt Count 177 10^3/cmm (157-399) 06/18/23 18: MPV 10.1 fL (7.4-10.4) 06/18/23 18:25 Neut % (Auto) 40.4 % 06/18/23 18: Lymph % (Auto) 46.4 % 06/18/23 18: [place] % (Auto) 12.8 % 06/18/23 18:25 Eos % (Auto) 0.0 % 06/18/23 18: Baso % (Auto) 0.4 % 06/18/23 18: Neut # (Auto) 0.95 10^3/uL (1.8-7.7) L* 06/18/23 18: Lymph # (Auto) 1.1 10^3/uL (0.8-4.8) 06/18/23 18: Miller # (Auto) 0.3 10^3/uL (0.2-0.9) 06/18/23 18:25 Eos # (Auto) 0.0 10^3/uL (0.0-0.8) 06/18/23 18: Baso # (Auto) 0.0 10^3/uL (0.0-0.1) 06/18/23 18: Nucleated RBC % (auto) 0 % 06/18/23 18: Nucleated RBCs # 0.0 /100WBC 06/18/23 18:25 Sodium 127 mmol/L (136-145) L 06/18/23 18: Potassium 3.7 mmol/L (3.5-5.1) 06/18/23 18:25 Chloride 88 mmol/L (98-107) L 06/18/23 18:25 Carbon Dioxide 29 mmol/L (22-29) 06/18/23 18:25 Anion Gap 13.7 (5-19) 06/18/23 18:25 BUN 7 mg/dL (6-20) 06/18/23 18:25 Creatinine 0.7 mg/dL (0.5-0.9) 06/18/23 18:25 GFR Calculation 86.6 mL/min (90-130) L 06/18/23 18:25 Glucose 113 mg/dL (65-115) 06/18/23 18:25 Calculated Osmolality 263 mOsm/kg (285-295) L 06/18/23 18:25 Calcium 8.4 mg/dL (8.5-10.5) L 06/18/23 18:25 Total Bilirubin 0.2 mg/dL (0.15-1.2) 06/18/23 18:25 AST 37 U/L (0-32) H 06/18/23 18:25 ALT 33 U/L (0-33) 06/18/23 18:25 Alkaline Phosphatase 70 U/L (35-105) 06/18/23 18:25 Total Protein 7.7 g/dL (6.6-8.7) 06/18/23 18:25 Albumin 4.4 g/dL (3.5-5.2) 06/18/23 18:25 Globulin 3.3 g/dL (1.3-4.6) 06/18/23 18:25 Urine Color Yellow (Yellow) 06/18/23 18:25 Urine Appearance Clear (CLEAR) 06/18/23 18:25 Urine pH 6 (5-7) 06/18/23 18:25 Ur Specific [place] 1.015 (1.005-1.030) 06/18/23 18:25 Urine Protein Neg (Negative) 06/18/23 18: Urine Glucose (UA) Norm (Normal) 06/18/23 18:25 Urine Ketones Negative (Negative) 06/18/23 18:25 Urine Blood Neg (Negative) 06/18/23 18: Urine Nitrate Negative (Negative) 06/18/23 18: Urine Bilirubin Neg (Negative) 06/18/23 18:25 Urine Urobilinogen Norm mg/dL (Negative) 06/18/23 18:25 Ur Leukocyte Esterase 1+ (Negative) H 06/18/23 18:25 Urine RBC 0-4 /hpf (0-2) H 06/18/23 18:25 Urine WBC 5-10 /hpf (0-5) H 06/18/23 18:25 Ur Squamous Epith Cells 0-4 /hpf (0-5) H 06/18/23 18:25 Ur Transition Epith Cell 0-4 /hpf 06/18/23 18:25 Ur Renal Epithelial Cell 0-4 /hpf 06/18/23 18:25 Amorphous Sediment Trace /hpf 06/18/23 18:25 Urine Bacteria Trace /hpf (NONE) 06/18/23 18:25 Urine Mucus None /hpf 06/18/23 18:25 All radiology interpretation(s) finalized by discharge Discharge Plan Discharge Patient Disposition: Home Clinical Impression: COVID-19, Dehydration Condition: Stable Prescriptions: New ondansetron 4 mg tablet,disintegrating 4 mg PO Q8H PRN (Reason: nausea and vomiting) Qty: 10 0RF No Action gabapentin 800 mg tablet 800 mg PO QID mirtazapine 30 mg tablet 30 mg PO DAILY levothyroxine [Synthroid] 88 mcg tablet 88 mcg PO DAILY Qty: 90 0RF lisinopril-hydrochlorothiazide 10-12.5 mg tablet 1 tab PO DAILY Qty: 30 0RF Discharge Orders: Discharge ED (Routine); Ordered 06/18/23 Ordered By: Ian Arrington Referrals: Sandro Parisi DO [Primary Care Provider] - Discharge Diet: Usual diet Discharge Activity: Increase activity as tolerated Patient Instructions: Viral Syndrome (ED) Activity Restrictions/Additional Instructions: Home and rest. Drink plenty water and fluids. Follow-up with primary care in 1 week for recheck of blood work. Return to ER for worsening symptoms such as severe chest pain, shortness of breath, inability to hold fluids down, or new concerns. Coding Level of Care Code ED Senior Safety Support Manager for Madelin Luna
[2023-06-18] MEDS: sodium chloride 0.9% 500 ML 999 ML IV (18:33)
[2023-06-18 18:34] LABS: Basophils % 0.4 %; Hematocrit 43.7 % (36-47); Lymphocytes # 1.1 10^3/uL (0.8-4.8); Lymphocytes % 46.4 %; Mean Corpuscular HGB Conc 33.4 g/dL (30-55); Mean Corpuscular Volume 86.9 fl (85-98); Mean Platelet Volume 10.1 fL (7.4-10.4); Monocytes # 0.3 10^3/uL (0.2-0.9); Monocytes % 12.8 %; Neutrophils % 40.4 %; Nucleated Red Blood Cells % 0 %; Platelet Count 177 10^3/cmm (157-399); Red Blood Count 5.03 10^6/uL (3.85-5.65); Red Cell Distribution Width 12.3 % (12.1-15.1); White Blood Count 2.35 10^3/uL (3.29-11.43)
[2023-06-18] MEDS: ondansetron 2 mg/ML SDV 2 mL 4 MG IVP (18:34)
[2023-06-18 18:35] VITALS: BP 155/90; PULSE 65; RESP 16; O2SAT 98
[2023-06-18 18:43] VITALS: O2SAT 98
[2023-06-18 18:50] LABS: Alanine Aminotransferase 33 U/L (0-33); Albumin Level 4.4 g/dL (3.5-5.2); Alkaline Phosphatase 70 U/L (35-105); Anion Gap 13.7 (5-19); Aspartate Amino Transferase 37 U/L (0-32); Blood Urea Nitrogen 7 mg/dL (6-20); Calcium 8.4 mg/dL (8.5-10.5); Carbon Dioxide 29 mmol/L (22-29); Chloride 88 mmol/L (98-107); Globulin 3.3 g/dL (1.3-4.6); Glomerular Filtration Rate 86.6 mL/min (90-130); Glucose 113 mg/dL (65-115); Osmolality Calculated 263 mOsm/kg (285-295); Potassium 3.7 mmol/L (3.5-5.1); Sodium 127 mmol/L (136-145); Total Bilirubin 0.2 mg/dL (0.15-1.2); Total Protein 7.7 g/dL (6.6-8.7)
[2023-06-18 18:51] LABS: Neutrophils # 0.95 10^3/uL (1.8-7.7)
[2023-06-18 19:05] LABS: Add Urine Microscopic? YES; Bilirubin Urine Neg (Negative); Blood Urine Neg (Negative); Glucose Urine UA Norm (Normal); Ketones Urine Negative (Negative); Leukocyte Esterase Urine 1+ (Negative); Nitrate Urine Negative (Negative); Protein Urine Neg (Negative); Specific Gravity, Urine 1.015 (1.005-1.030); Urine Appearance Clear (CLEAR); Urine Color Yellow (Yellow); Urobilinogen Urine Norm (Negative); pH Urine 6 (5-7)
[2023-06-18 19:10] LABS: Add Urine Culture? No; Amorphous Sediment Urine TRACE /hpf; Bacteria Urine TRACE /hpf; RBC Urine 0-4 /hpf (0-2); Renal Epithelial Cells Urine 0-4 /hpf; Squamous Epithelial Cell Urine 0-4 /hpf (0-5); Transitional Epi Cells Urine 0-4 /hpf
[2023-06-18 19:42] VITALS: BP 155/90; PULSE 65; RESP 16; TEMP 36.6; O2SAT 98
== END 2023-06-18 19:43 | disposition home or self-care (01) ==
PROVIDERS: Emergency Provider Nurse Practitioner Family; PCP Internal Medicine
DX: U07.1 COVID-19 (principal); E86.0 Dehydration
CPT/HCPCS: 80053; 81001; 85025; 96374; 99284; J2405; J7040

== ENCOUNTER 2023-07-15 15:23 | Outpatient (CLI) | payer MEDICAID, SELFPAY ==
[2023-07-15 16:25] LABS: Free T4 Free Thyroxine 1.33 ng/dL (0.82-1.77); Thyroid Stimulating Hormone 3.05 uIU/mL (0.27-4.20)
== END 2023-07-15 15:24 | disposition home or self-care (01) ==
LOC: LAB 15:24
PROVIDERS: PCP Internal Medicine; Visit Provider Internal Medicine
DX: E03.9 Hypothyroidism, unspecified (principal)
CPT/HCPCS: 84439; 84443

== ENCOUNTER 2023-09-08 04:41 | Emergency (ER) | payer MEDICAID, SELFPAY ==
[2023-09-08 04:42] VITALS: BP 128/81; PULSE 64; RESP 16; TEMP 36.6; O2SAT 100; BMI 21.6
--- NOTE | 2023-09-08 05:26 | ECG_ITS ---
[facility] Test Date: 2023-09-08 Pat Name: Thea Wooten Department: Room: Gender: Female Library Consultant: : 1965 Requested By: Zeke Sousa Order Number: [id number] Donis MD: Memo Freire M.D. Measurements Intervals Point Rate: 53 P: 89 CT: 165 QRS: 75 QRSD: 107 T: 72 QT: 431 QTc: 407 Interpretive Statements SINUS BRADYCARDIA INCOMPLETE RIGHT BUNDLE BRANCH BLOCK [90+ ms QRS DURATION, TERMINAL R IN V1/V2, 40+ ms S IN I/aVL/V4/V5/V6] Compared to ECG 10/02/2021 16:13:22 Incomplete right bundle-branch block now present Sinus rhythm no longer present Indeterminate axis no longer present Intraventricular conduction delay no longer present Electronically Signed On 09-08-2023 8:35:26 GPS FIELD DATA COLLECTOR by Memo Freire M.D. [id number]
--- NOTE | 2023-09-08 05:31 | W.ED.GENADLT ---
HPI - General Adult General: Chief complaint: General Medical Stated complaint: HYPERTENSION Time Seen by Provider: 09/08/23 05:20 Source: patient History of Present Illness: 57-year-old female with a history of hypertension. She presents with hypertension at home. She notes that her blood pressure was up to 180 systolic. She took her blood pressure medication which is lisinopril/hydrochlorothiazide. She does not usually take this medication, as she has not had problems with high blood pressure lately. She was upset with her daughter when her blood pressure was high. She noted tingling in her left arm. She did not have significant chest discomfort. Symptoms are essentially now resolved. She still somewhat nauseated. Associated symptoms: Reports dyspnea, nausea and palpitations; Deny chest pain, headache(s) or vomiting Review of Systems Const: Reports: fever(s) ENMT: Denies: throat pain Card: Reports: palpitations; Denies: chest pain Resp: Reports: dyspnea and productive cough GI: Reports: nausea; Denies: abdominal pain or vomiting Musc: Reports: extremity pain (Left upper) Neuro: Denies: headache(s) PFSH ED PFSH: Medical History Urinary urgency Heart palpitations delivery delivered Surgical History H/O tubal ligation Family History Father No problems noted. Mother Family history of thyroid problem Social History Smoking and tobacco/nicotine status: never used tobacco/nicotine Quit status (tobacco/nicotine): has quit using Second hand smoke exposure: No Alcohol intake: former Substance/Drug Use: never Adopted: Yes Caregiver/support person: No Lives independently: Yes Household members: spouse Housing: House Marital status: Number of children: 2 Highest education level completed: 11th Grade service: No Current occupational status: unemployed Physical Exam Const: COMMON NORMALS: no acute distress GENERAL APPEARANCE: cooperative; not ill appearing and not frail appearing HENMT: COMMON NORMALS: normocephalic, atraumatic and Normal external nose present HEAD & SCALP: normocephalic and atraumatic FACE & SINUS: normal facial exam and face symmetric NOSE: Normal external nose present Eye: COMMON NORMALS: Equal, round and reactive pupils present and EOMs intact bilaterally PUPIL: Yes Equal, round and reactive pupils present Neck/C-Spine: GENERAL: Yes trachea midline Chest: CHEST: Yes Symmetrical chest wall rise Resp: COMMON NORMALS: normal respiratory effort, No retractions, No use of accessory muscles and clear to auscultation bilaterally AUSCULTATION: clear to auscultation bilaterally Cardio: COMMON NORMALS: regular rate and regular rhythm RATE: regular rate RHYTHM: regular rhythm GI: COMMON NORMALS: Normal to inspection, nondistended, normoactive bowel sounds present Extremity: COMMON NORMALS: no pedal edema Neuro: SCARLET COMA SCALE: document GCS findings [place] coma scale eye opening: Spontaneous [place] coma scale verbal response: Orientated [place] coma scale motor response: Obey commands [place] coma scale total score: 15 SENSORY EXAM: Yes extremities (intact) Psych: COMMON NORMALS: speech normal SPEECH: Yes normal speech Skin: COMMON NORMALS: no rashes or lesions noted GENERAL SKIN EXAM: no rashes or lesions noted Course Vital Signs: Vital signs: Vital Signs Temperature 97.9 F 09/08/23 06:30 Pulse Rate 61 09/08/23 06:30 Respiratory Rate 16 09/08/23 06:30 Blood Pressure 109/73 09/08/23 06:30 Pulse Oximetry 100 09/08/23 06:30 Oxygen Delivery Me thod Room Air 09/08/23 04:42 [facility] - General Adult Medical Decision Making Blood pressure was elevated at home. May be related to emotional stress, possibly not. Blood pressure is normotensive here. Her heart rate is in the 50s. Saturations are 98%. Her EKG shows a sinus rhythm with a rate of 50, normal axis. She has an RSR prime in V2. No acute ST wave changes. Troponin is non-detectable. Other laboratory negative. UA normal. BP has normalized. Will allow home to FU as outpatient. Return for worsening symptoms. Lab Data 09/08/23 05:46 09/08/23 05:32 Laboratory Results WBC 7.23 10^3/uL (3.29-11.43) 09/08/23 05:46 Corrected WBC Cancelled 09/08/23 05:32 RBC 4.32 10^6/uL (3.85-5.65) 09/08/23 05:46 Hgb 13.00 g/dL (11.27-16.99) 09/08/23 05:46 Hct 39.0 % (36-47) 09/08/23 05:46 MCV 90.3 fl (85-98) 09/08/23 05:46 MCH 30.1 pg (27-33) 09/08/23 05:46 MCHC 33.3 g/dL (30-55) 09/08/23 05:46 RDW 13.4 % (12.1-15.1) 09/08/23 05:46 Plt Count 222 10^3/cmm (157-399) 09/08/23 05:46 MPV 10.1 fL (7.4-10.4) 09/08/23 05:46 Gran % Cancelled 09/08/23 05:32 Neut % (Auto) 71.3 % 09/08/23 05:46 Lymph % (Auto) 22.3 % 09/08/23 05:46 [place] % (Auto) 5.3 % 09/08/23 05:46 Eos % (Auto) 0.4 % 09/08/23 05:46 Baso % (Auto) 0.6 % 09/08/23 05:46 Neut # (Auto) 5.16 10^3/uL (1.8-7.7) 09/08/23 05:46 Lymph # (Auto) 1.6 10^3/uL (0.8-4.8) 09/08/23 05:46 [place] # (Auto) 0.4 10^3/uL (0.2-0.9) 09/08/23 05:46 Eos # (Auto) 0.0 10^3/uL (0.0-0.8) 09/08/23 05:46 Baso # (Auto) 0.0 10^3/uL (0.0-0.1) 09/08/23 05:46 Absolute Gran (auto) Cancelled 09/08/23 05:32 Nucleated RBC % (auto) 0 % 09/08/23 05:46 Nucleated RBCs # 0.0 /100WBC 09/08/23 05:46 Sodium 136 mmol/L (136-145) 09/08/23 05:32 Potassium 3.7 mmol/L (3.5-5.1) 09/08/23 05:32 Chloride 99 mmol/L (98-107) 09/08/23 05:32 Carbon Dioxide 25 mmol/L (22-29) 09/08/23 05:32 Anion Gap 15.7 (5-19) 09/08/23 05:32 BUN 8 mg/dL (6-20) 09/08/23 05:32 Creatinine 0.6 mg/dL (0.5-0.9) 09/08/23 05:32 GFR Calculation 103.4 mL/min (90-130) 09/08/23 05:32 Glucose 110 mg/dL (65-115) 09/08/23 05:32 Calculated Osmolality 281 mOsm/kg (285-295) L 09/08/23 05:32 Calcium 8.9 mg/dL (8.5-10.5) 09/08/23 05:32 Total Bilirubin 0.2 mg/dL (0.15-1.2) 09/08/23 05:32 AST 15 U/L (0-32) 09/08/23 05:32 ALT 9 U/L (0-33) 09/08/23 05:32 Alkaline Phosphatase 67 U/L (35-105) 09/08/23 05:32 Troponin T Baseline < 6 ng/L (0-10) 09/08/23 05:46 Total Protein 7.1 g/dL (6.6-8.7) 09/08/23 05:32 Albumin 4.0 g/dL (3.5-5.2) 09/08/23 05:32 Globulin 3.1 g/dL (1.3-4.6) 09/08/23 05:32 Urine Color Colorless (Yellow) 09/08/23 05:50 Urine Appearance Clear (CLEAR) 09/08/23 05:50 Urine pH 6.5 (5-7) 09/08/23 05:50 Ur Specific [place] 1.005 (1.005-1.030) 09/08/23 05:50 Urine Protein Neg (Negative) 09/08/23 05:50 Urine Glucose (UA) Norm (Normal) 09/08/23 05:50 Urine Ketones Negative (Negative) 09/08/23 05:50 Urine Blood Neg (Negative) 09/08/23 05:50 Urine Nitrate Negative (Negative) 09/08/23 05:50 Urine Bilirubin Neg (Negative) 09/08/23 05:50 Urine Urobilinogen Norm mg/dL (Negative) 09/08/23 05:50 Ur Leukocyte Esterase Negative (Negative) 09/08/23 05:50 No radiology studies performed this visit Discharge Plan Discharge Patient Disposition: Home Clinical Impression: Hypertension Condition: Stable Prescriptions: No Action gabapentin 800 mg tablet 800 mg PO QID levothyroxine [Synthroid] 100 mcg tablet 100 mcg PO DAILY Qty: 60 0RF Rx Instructions: Synthroid 100mcg daily mirtazapine 30 mg tablet 30 mg PO DAILY lisinopril-hydrochlorothiazide 10-12.5 mg tablet 1 tab PO DAILY Qty: 30 0RF ondansetron 4 mg tablet,disintegrating 4 mg PO Q8H PRN (Reason: nausea and vomiting) Qty: 10 0RF Discharge Orders: Discharge ED (Routine); Ordered 09/08/23 Ordered By: Zeke Metz Referrals: Sandro Parisi DO [Primary Care Provider] - 4-7 days Patient Instructions: Hypertension (ED) Activity Restrictions/Additional Instructions: Check your blood pressure twice daily. Take your medication as directed. Return for chest discomfort, shortness of breath, dizziness, headaches, other concerning symptoms related to your blood pressure. See your doctor this week. Keep a log of your blood pressures, so they can manage your hypertension appropriately. Coding Level of Care Code ED Manager Auto for Madelin Luna
[2023-09-08 05:52] LABS: Basophils % 0.6 %; Eosinophils % 0.4 %; Lymphocytes # 1.6 10^3/uL (0.8-4.8); Lymphocytes % 22.3 %; Mean Corpuscular HGB Conc 33.3 g/dL (30-55); Mean Corpuscular Hemoglobin 30.1 pg (27-33); Mean Corpuscular Volume 90.3 fl (85-98); Mean Platelet Volume 10.1 fL (7.4-10.4); Monocytes # 0.4 10^3/uL (0.2-0.9); Monocytes % 5.3 %; Neutrophils # 5.16 10^3/uL (1.8-7.7); Neutrophils % 71.3 %; Nucleated Red Blood Cells % 0 %; Platelet Count 222 10^3/cmm (157-399); Red Blood Count 4.32 10^6/uL (3.85-5.65); Red Cell Distribution Width 13.4 % (12.1-15.1); White Blood Count 7.23 10^3/uL (3.29-11.43)
[2023-09-08 05:55] LABS: Alanine Aminotransferase 9 U/L (0-33); Alkaline Phosphatase 67 U/L (35-105); Anion Gap 15.7 (5-19); Aspartate Amino Transferase 15 U/L (0-32); Blood Urea Nitrogen 8 mg/dL (6-20); Calcium 8.9 mg/dL (8.5-10.5); Carbon Dioxide 25 mmol/L (22-29); Chloride 99 mmol/L (98-107); Creatinine Clr Calc Pharmacy 95.5087; Globulin 3.1 g/dL (1.3-4.6); Glomerular Filtration Rate 103.4 mL/min (90-130); Glucose 110 mg/dL (65-115); Osmolality Calculated 281 mOsm/kg (285-295); Potassium 3.7 mmol/L (3.5-5.1); Sodium 136 mmol/L (136-145); Total Bilirubin 0.2 mg/dL (0.15-1.2); Total Protein 7.1 g/dL (6.6-8.7)
[2023-09-08 06:01] VITALS: BP 109/73; PULSE 61; RESP 16; O2SAT 100
[2023-09-08 06:06] LABS: Add Urine Microscopic? NO; Charge for UA Resulting for Rev
[2023-09-08 06:11] LABS: Bilirubin Urine Neg (Negative); Blood Urine Neg (Negative); Glucose Urine UA Norm (Normal); Ketones Urine Negative (Negative); Leukocyte Esterase Urine Negative (Negative); Nitrate Urine Negative (Negative); Protein Urine Neg (Negative); Specific Gravity, Urine 1.005 (1.005-1.030); Urine Appearance Clear (CLEAR); Urine Color Colorless (Yellow); Urobilinogen Urine Norm (Negative); pH Urine 6.5 (5-7)
[2023-09-08 06:13] LABS: Troponin(5th) Baseline < 6 ng/L (0-10)
[2023-09-08 06:30] VITALS: BP 109/73; PULSE 61; RESP 16; TEMP 36.6; O2SAT 100
== END 2023-09-08 06:38 | disposition home or self-care (01) ==
PROVIDERS: Emergency Provider Emergency Medicine; PCP Internal Medicine
DX: I10 Essential (primary) hypertension (principal); Z87.891 Personal history of nicotine dependence
CPT/HCPCS: 36415; 80053; 81003; 84484; 85025; 93005; 99284

== ENCOUNTER 2023-09-14 04:14 | Emergency (ER) | payer MEDICAID, SELFPAY ==
[2023-09-14 04:14] VITALS: BP 127/78; PULSE 68; RESP 14; TEMP 36.4; O2SAT 96; BMI 21.6
[2023-09-14 04:32] VITALS: BP 115/71; PULSE 64; O2SAT 95
--- NOTE | 2023-09-14 04:51 | ECG_ITS ---
[facility] Test Date: 2023-09-14 Pat Name: Thea Wooten Department: Room: Gender: Female Medical Aide: : 1965 Requested By: Zeke Sousa Order Number: [id number] Donis MD: Avni Ho M.D. Measurements Intervals Cool Rate: 56 P: 79 [place]: 162 QRS: 76 QRSD: 106 T: 72 QT: 434 QTc: 422 Interpretive Statements SINUS BRADYCARDIA INCOMPLETE RIGHT BUNDLE BRANCH BLOCK [90+ ms QRS DURATION, TERMINAL R IN V1/V2, 40+ ms S IN I/aVL/V4/V5/V6] Compared to ECG 09/08/2023 05:26:05 No significant changes Electronically Signed On 09-14-2023 8:22:01 OVEN ATTENDANT by Avni Ho M.D. [id number]
--- NOTE | 2023-09-14 05:14 | W.ED.GENADLT ---
HPI - General Adult General: Chief complaint: General Medical Stated complaint: HIGH BP Time Seen by Provider: 09/14/23 04:20 History of Present Illness: 57-year-old female with a history of hypertension. She was seen last weekend with high blood pressure, that was normalized by the time she arrived in the ER. Workup was done, revealing no specific cause. She presents after having a high blood pressure all night she says. It was as high as 170s systolic. She took 3 of her home medications which are lisinopril hydrochlorothiazide. She presents with a blood pressure of 117 systolic. She says again that she does not take her blood pressure every day, and that she only takes it if she feels like going up. Associated symptoms: Reports headache(s); Deny chest pain, confusion, dyspnea, nausea, rash, palpitations or vomiting Review of Systems Const: Denies: fever(s), chills or body aches Eyes: Denies: change in vision Card: Denies: chest pain or palpitations Resp: Denies: dyspnea, productive cough, non-productive cough or wheezing GI: Denies: abdominal pain, nausea, vomiting, diarrhea or hematochezia : Denies: difficulty voiding Skin/Breast: Denies: rash Neuro: Reports: headache(s) and dizziness; Denies: weakness in extremities or confusion PFSH ED PFSH: Medical History Urinary urgency Heart palpitations delivery delivered Surgical History H/O tubal ligation Family History Father No problems noted. Mother Family history of thyroid problem Social History Smoking and tobacco/nicotine status: never used tobacco/nicotine Quit status (tobacco/nicotine): has quit using Second hand smoke exposure: No Alcohol intake: former Substance/Drug Use: never Adopted: Yes Caregiver/support person: No Lives independently: Yes Household members: spouse Housing: House Marital status: Number of children: 2 Highest education level completed: 11th Grade service: No Current occupational status: unemployed Physical Exam Const: COMMON NORMALS: no acute distress GENERAL APPEARANCE: cooperative; not ill appearing and not frail appearing HENMT: COMMON NORMALS: normocephalic, atraumatic and Normal external nose present HEAD & SCALP: normocephalic and atraumatic FACE & SINUS: normal facial exam and face symmetric NOSE: Normal external nose present Eye: COMMON NORMALS: Equal, round and reactive pupils present and EOMs intact bilaterally PUPIL: Yes Equal, round and reactive pupils present Neck/C-Spine: GENERAL: Yes trachea midline Chest: CHEST: Yes Symmetrical chest wall rise Resp: COMMON NORMALS: normal respiratory effort, No retractions, No use of accessory muscles and clear to auscultation bilaterally AUSCULTATION: clear to auscultation bilaterally Cardio: COMMON NORMALS: regular rate and regular rhythm RATE: regular rate RHYTHM: regular rhythm GI: COMMON NORMALS: Normal to inspection, nondistended, normoactive bowel sounds present Extremity: COMMON NORMALS: no pedal edema Neuro: RAVI COMA SCALE: document GCS findings Ravi coma scale eye opening: Spontaneous [place] coma scale verbal response: Orientated [place] coma scale motor response: Obey commands [place] coma scale total score: 15 SENSORY EXAM: Yes extremities (intact) Psych: COMMON NORMALS: speech normal SPEECH: Yes normal speech Skin: COMMON NORMALS: no rashes or lesions noted GENERAL SKIN EXAM: no rashes or lesions noted Course Vital Signs: Vital signs: Vital Signs Temperature 97.6 F 09/14/23 04:14 Pulse Rate 55 L 09/14/23 05:33 Respiratory Rate 16 09/14/23 05:33 Blood Pressure 120/72 09/14/23 05:33 Pulse Oximetry 94 09/14/23 05:33 Oxygen Delivery Me thod Room Air 09/14/23 04:14 [facility] - General Adult Medical Decision Making This patient is quite anxious about her blood pressure. Despite instructions given last time in the emergency department, she continues not to take her blood pressure medication on a daily basis. She took it this morning, because her blood pressure felt high . She has been having some leg cramps, some chest pressure and nausea. These are resolved now. She was told that blood pressure medicine should be taken daily. She is afraid she will bottom out if she takes her blood pressure medication when her pressure is low. It was explained to her that the medicine she is on does not work well acutely. She asks if she can be put on a medication that will work as needed. We will have her discontinue her blood pressure medicine, and give her amlodipine for now. She has yet to follow-up with her PCP. We will encourage this. No radiology studies performed this visit Discharge Plan Discharge Patient Disposition: Home Clinical Impression: Hypertension Condition: Stable Prescriptions: New amlodipine 10 mg tablet 10 mg PO DAILY Qty: 30 0RF Discontinued lisinopril-hydrochlorothiazide 10-12.5 mg tablet 1 tab PO DAILY Qty: 30 0RF No Action gabapentin 800 mg tablet 800 mg PO QID levothyroxine [Synthroid] 100 mcg tablet 100 mcg PO DAILY Qty: 60 0RF Rx Instructions: Synthroid 100mcg daily mirtazapine 30 mg tablet 30 mg PO DAILY ondansetron 4 mg tablet,disintegrating 4 mg PO Q8H PRN (Reason: nausea and vomiting) Qty: 10 0RF Discharge Orders: Discharge ED (Routine); Ordered 09/14/23 Ordered By: Zeke Metz Referrals: Sandro Parisi, [Primary Care Provider] - 4-7 days Patient Instructions: Hypertension (ED), Opioid Safety, Pain Management Activity Restrictions/Additional Instructions: Continue to take your blood pressure twice daily at home, and record numbers for your doctor. Even if elevated, do not take blood pressure more than 2-3 times daily, as it has a tendency to rise the more often you take it. Discontinue your current blood pressure medication. Fill the new medication you were prescribed this morning. If your blood pressure is greater than 150/90, take the medication prescribed this morning. Call your doctor on Friday, for a follow-up appointment this coming week. Coding Level of Care Code ED Quality Assurance Qa Lab Technician for Madelin Luna
[2023-09-14] MEDS: LORazepam 1 mg Tablet PO (05:16)
[2023-09-14 05:33] VITALS: BP 120/72; PULSE 55; RESP 16; O2SAT 94
== END 2023-09-14 05:32 | disposition home or self-care (01) ==
PROVIDERS: Emergency Provider Emergency Medicine; PCP Internal Medicine
DX: I10 Essential (primary) hypertension (principal)
CPT/HCPCS: 93005; 99283

== ENCOUNTER 2023-09-14 08:15 | Emergency (ER) | payer MEDICAID, SELFPAY ==
[2023-09-14 08:20] VITALS: BP 112/64; PULSE 73; TEMP 36.4; O2SAT 96; BMI 21.6
--- NOTE | 2023-09-14 08:35 | ED_ITS ---
HPI - Anxiety 2 General: Chief Complaint: Anxiety Stated Complaint: elevated hr Time Seen by Provider: 09/14/23 08:25 History of Present Illness: This patient is a 57-year-old white female who presents to the emergency department stating that her blood pressure has been up and down quite a bit recently. She has been having occasions of racing heartbeat. Symptoms seem to be worse with activity. She does not have any associated chest pain or shortness of breath. Patient does have a history of hypothyroidism and she was worried it might be her thyroid acting up. She also states that she is currently going through menopause and may be related to that. Associated symptoms: Reports palpitations Review of Systems 2 General: Reports: 10 or more systems reviewed and unremarkable except in HPI and below Card: Reports: palpitations PFSH ED 2 PFSH: Medical History Urinary urgency Heart palpitations delivery delivered Surgical History H/O tubal ligation Family History Father No problems noted. Mother Family history of thyroid problem Social History Smoking and tobacco/nicotine status: never used tobacco/nicotine Quit status (tobacco/nicotine): has quit using Second hand smoke exposure: No Alcohol intake: former Substance/Drug Use: never Adopted: Yes Caregiver/support person: No Lives independently: Yes Household members: spouse Housing: House Marital status: Number of children: 2 Highest education level completed: 11th Grade service: No Current occupational status: unemployed Physical Exam 2 Const: COMMON NORMALS: no acute distress, patient oriented x3 and no limitations GENERAL APPEARANCE: cooperative and comfortable HENMT: COMMON NORMALS: normocephalic, atraumatic, Normal nasal mucous membranes and turbinates present, moist oral mucous membranes and oropharynx normal HEAD & SCALP: normal to inspection, normocephalic and atraumatic F DONTE & SINUS: normal facial exam NOSE: Normal nasal mucous membranes and turbinates present Eye: COMMON NORMALS: Equal, round and reactive pupils present, EOMs intact bilaterally and conjunctivae normal GENERAL EYE: appearance normal, both eyes and all related structures CONJUNCTIVA: Yes conjunctivae normal PUPIL: Yes Equal, round and reactive pupils present Neck/C-Spine: COMMON NORMALS: supple and no JVD Chest: COMMONS NORMALS: normal inspection of the chest Resp: COMMON NORMALS: normal respiratory effort and clear to auscultation bilaterally AUSCULTATION: clear to auscultation bilaterally Cardio: COMMON NORMALS: no JVD, regular rate, regular rhythm, No gallops present (Cardio), No murmurs present (Cardio) and No rub (Cardio) RATE: r egular rate RHYTHM: regular rhythm GI: COMMON NORMALS: Normal to inspection, nondistended, normoactive bowel sounds present, Soft to palpation and non-tender AUSCULTATION: Yes normoactive bowel sounds PALPATION: Yes Soft to palpation : COMMON NORMALS: Yes no CVA tenderness BLADDER/KIDNEY EXAM: Yes no CVA tenderness Back/Pelvis: COMMON NORMALS: no CVA tenderness and thoracic and lumbar spine normal to inspection Extremity: COMMON NORMALS: normal to inspection Neuro: COMMON NORMALS: patient oriented x3 and CN's II-XII intact bilaterally Psych: COMMON NORMALS: mental status grossly normal, Normal thought process present and cooperative THOUGHT PROCESS: Normal thought process present Skin: COMMON NORMALS: no rashes or lesions noted, turgor normal and no jaundice GENERAL SKIN EXAM: no rashes or lesions noted and turgor normal Course 2 Vital Signs: Vital signs: Vital Signs Temperature 97.6 F 09/14/23 08:20 Pulse Rate 70 09/14/23 10:23 Respiratory Rate 18 09/14/23 10:23 Blood Pressure 136/97 09/14/23 08:57 Pulse Oximetry 96 09/14/23 10:23 Oxygen Delivery Me thod Room Air 09/14/23 10:23 MDM - Anxiety Medical Decision Making EKG revealed sinus rhythm with no ST segment abnormalities. CBC and BMP were normal. TSH 1.89. Patient has been asymptomatic throughout her ER stay. I recommended she follow-up with her primary care physician for further evaluation and recommendations. She was discharged in stable condition. Lab Data 09/14/23 08:43 09/14/23 08:43 Laboratory Results WBC 8.43 10^3/uL (3.29-11.43) 09/14/23 08:43 RBC 4.49 10^6/uL (3.85-5.65) 09/14/23 08:43 Hgb 13.40 g/dL (11.27-16.99) 09/14/23 08:43 Hct 39.6 % (36-47) 09/14/23 08:43 MCV 88.2 fl (85-98) 09/14/23 08:43 MCH 29.8 pg (27-33) 09/14/23 08:43 MCHC 33.8 g/dL (30-55) 09/14/23 08:43 RDW 12.9 % (12.1-15.1) 09/14/23 08:43 Plt Count 270 10^3/cmm (157-399) 09/14/23 08:43 MPV 10.2 fL (7.4-10.4) 09/14/23 08:43 Neut % (Auto) 69.2 % 09/14/23 08:43 Lymph % (Auto) 23.1 % 09/14/23 08:43 [place] % (Auto) 6.8 % 09/14/23 08:43 Eos % (Auto) 0.2 % 09/14/23 08:43 Baso % (Auto) 0.6 % 09/14/23 08:43 Neut # (Auto) 5.83 10^3/uL (1.8-7.7) 09/14/23 08:43 Lymph # (Auto) 2.0 10^3/uL (0.8-4.8) 09/14/23 08:43 [place] # (Auto) 0.6 10^3/uL (0.2-0.9) 09/14/23 08:43 Eos # (Auto) 0.0 10^3/uL (0.0-0.8) 09/14/23 08:43 Baso # (Auto) 0.1 10^3/uL (0.0-0.1) 09/14/23 08:43 Nucleated RBC % (auto) 0 % 09/14/23 08:43 Nucleated RBCs # 0.0 /100WBC 09/14/23 08:43 Sodium 135 mmol/L (136-145) L 09/14/23 08:43 Potassium 3.7 mmol/L (3.5-5.1) 09/14/23 08:43 Chloride 94 mmol/L (98-107) L 09/14/23 08:43 Carbon Dioxide 28 mmol/L (22-29) 09/14/23 08:43 Anion Gap 16.7 (5-19) 09/14/23 08:43 BUN 13 mg/dL (6-20) 09/14/23 08:43 Creatinine 0.6 mg/dL (0.5-0.9) 02 08:43 GFR Calculation 103.4 mL/min (90-130) 09/14/23 08:43 Glucose 119 mg/dL (65-115) H 09/14/23 08:43 Calculated Osmolality 281 mOsm/kg (285-295) L 09/14/23 08:43 Calcium 9.1 mg/dL (8.5-10.5) 09/14/23 08:43 TSH 1.89 uIU/mL (0.27-4.20) 09/14/23 08:43 All radiology interpretation(s) finalized by discharge Discharge Plan Discharge Patient Disposition: Home Clinical Impression: Heart palpitations Condition: Stable Prescriptions: No Action gabapentin 800 mg tablet 800 mg PO QID levothyroxine [Synthroid] 100 mcg tablet 100 mcg PO DAILY Qty: 60 0RF Rx Instructions: Synthroid 100mcg daily mirtazapine 30 mg tablet 30 mg PO DAILY ondansetron 4 mg tablet,disintegrating 4 mg PO Q8H PRN (Reason: nausea and vomiting) Qty: 10 0RF amlodipine 10 mg tablet 10 mg PO DAILY Qty: 30 0RF Discharge Orders: Discharge ED (Routine); Ordered 09/14/23 Ordered By: Ed Rosen Referrals: Sandro Parisi DO [Primary Care Provider] - Coding Level of Care Code ED Apprentice Pain[employer] for Chg Fwglynn
--- NOTE | 2023-09-14 08:43 | ECG_ITS ---
[facility] Test Date: 2023-09-14 Pat Name: Thea Wooten Department: Room: Gender: Female Floral Associate: : 1965 Requested By: Ed Rosen Order Number: [id number] Donis MD: Avni Ho M.D. Measurements Intervals [place] Rate: 69 P: 88 CA: 158 QRS: 79 QRSD: 105 T: 76 QT: 409 QTc: 441 Interpretive Statements SINUS RHYTHM INCOMPLETE RIGHT BUNDLE BRANCH BLOCK [90+ ms QRS DURATION, TERMINAL R IN V1/V2, 40+ ms S IN I/aVL/V4/V5/V6] Compared to ECG 09/14/2023 05:05:16 Sinus bradycardia no longer present Electronically Signed On 09-15-2023 14:16:55 BOTTOM BLEACHER by Avni Ho M.D. [id number]
[2023-09-14 08:54] LABS: Basophils # 0.1 10^3/uL (0.0-0.1); Basophils % 0.6 %; Eosinophils % 0.2 %; Hematocrit 39.6 % (36-47); Lymphocytes % 23.1 %; Mean Corpuscular HGB Conc 33.8 g/dL (30-55); Mean Corpuscular Hemoglobin 29.8 pg (27-33); Mean Corpuscular Volume 88.2 fl (85-98); Mean Platelet Volume 10.2 fL (7.4-10.4); Monocytes # 0.6 10^3/uL (0.2-0.9); Monocytes % 6.8 %; Neutrophils # 5.83 10^3/uL (1.8-7.7); Neutrophils % 69.2 %; Nucleated Red Blood Cells % 0 %; Platelet Count 270 10^3/cmm (157-399); Red Blood Count 4.49 10^6/uL (3.85-5.65); Red Cell Distribution Width 12.9 % (12.1-15.1); White Blood Count 8.43 10^3/uL (3.29-11.43)
[2023-09-14 08:57] VITALS: BP 136/97; PULSE 82; RESP 18; O2SAT 95
[2023-09-14 09:40] LABS: Anion Gap 16.7 (5-19); Blood Urea Nitrogen 13 mg/dL (6-20); Calcium 9.1 mg/dL (8.5-10.5); Carbon Dioxide 28 mmol/L (22-29); Chloride 94 mmol/L (98-107); Creatinine Clr Calc Pharmacy 95.5087; Glomerular Filtration Rate 103.4 mL/min (90-130); Glucose 119 mg/dL (65-115); Osmolality Calculated 281 mOsm/kg (285-295); Potassium 3.7 mmol/L (3.5-5.1); Sodium 135 mmol/L (136-145); Thyroid Stimulating Hormone 1.89 uIU/mL (0.27-4.20)
[2023-09-14 10:23] VITALS: PULSE 70; RESP 18; O2SAT 96
== END 2023-09-14 10:44 | disposition home or self-care (01) ==
PROVIDERS: Emergency Provider Emergency Medicine; PCP Internal Medicine
DX: R00.2 Palpitations (principal)
CPT/HCPCS: 36415; 80048; 84443; 85025; 93005; 99284

== ENCOUNTER 2024-01-08 14:29 | Outpatient (CLI) | payer MEDICAID, SELFPAY ==
[2024-01-08 15:22] LABS: Thyroid Stimulating Hormone 1.75 uIU/mL (0.27-4.20)
== END 2024-01-08 14:30 | disposition home or self-care (01) ==
LOC: LAB 14:29
PROVIDERS: PCP Internal Medicine; Visit Provider Internal Medicine
DX: E03.9 Hypothyroidism, unspecified (principal)
CPT/HCPCS: 36415; 84439; 84443

== ENCOUNTER → 2024-03-23 08:50 | Outpatient (BNVA) | payer MEDICAID, SELFPAY | PROVIDERS: PCP Internal Medicine; Visit Provider Internal Medicine | DX: E03.9 Hypothyroidism, unspecified (principal) | CPT/HCPCS: 36415; 84439; 84443 ==

== ENCOUNTER → 2024-04-20 19:17 | Outpatient (BNVA) | payer MEDICAID, SELFPAY | PROVIDERS: PCP Internal Medicine; Visit Provider Registered Nurse Neonatal Intensive Care | DX: R30.9 Painful micturition, unspecified (principal) | CPT/HCPCS: 81000; 87086 ==

== ENCOUNTER → 2024-04-29 15:51 | Outpatient (BNVA) | payer MEDICAID, SELFPAY | PROVIDERS: PCP Internal Medicine | DX: R39.9 Unspecified symptoms and signs involving the genitourinary system (principal) | CPT/HCPCS: 81000 ==

== ENCOUNTER → 2024-05-13 15:11 | Outpatient (BNVA) | payer MEDICAID, SELFPAY | PROVIDERS: PCP Internal Medicine; Visit Provider Orthopaedic Surgery | DX: M54.50 Low back pain, unspecified (principal); M54.9 Dorsalgia, unspecified | CPT/HCPCS: 72072; 72110 ==

== ENCOUNTER → 2025-03-30 11:41 | Outpatient (BNVA) | payer MEDICAID, SELFPAY | PROVIDERS: PCP Internal Medicine; Visit Provider Internal Medicine | DX: E03.9 Hypothyroidism, unspecified (principal); L65.9 Nonscarring hair loss, unspecified | CPT/HCPCS: 36415; 83036; 84439; 84443 ==